=== PATIENT | female | born 1935 | race Caucasian/White ===

== ENCOUNTER 2016-08-11 11:18 | Outpatient (CLI) | payer MEDICARE, OTHER ==
[2016-08-11 12:09] LABS: ALT (SGPT) 20 U/L (0-55); AST (SGOT) 25 U/L (5-34); Albumin 4.3 g/dL (3.4-4.8); Alkaline Phosphatase 99 U/L (40-150); Anion Gap 15 mmol/L (10-20); BUN (Urea Nitrogen) 9 mg/dL (9.8-20.1); Bilirubin, Total 0.4 mg/dL (0.2-1.2); Calc. Creatinine Clearance 0 mL/min (70-130); Calcium 9.9 mg/dL (7.8-10.44); Carbon Dioxide 28 mmol/L (23-31); Chloride 100 mmol/L (98-107); Estimated GFR-MDRD 84; Globulin 1.9 g/dL (2.4-3.5); Glucose 101 mg/dL (83-110); Protein, Total 6.2 g/dL (5.8-8.1); Sodium 139 mmol/L (136-145)
[2016-08-11 12:11] LABS: #Basophils 0.1 thou/uL (0.0-0.2); #Eosinphils 0.2 thou/uL (0.0-0.7); #Lymphocytes 1.5 thou/uL (1.20-3.40); #Monocytes 0.5 thou/uL (0.11-0.59); #Neutrophils 2.9 thou/uL (1.40-6.50); %Basophils 1.3 % (0.0-1.0); %Eosinophils 4.3 % (0.0-10.0); %Lymphocytes 29.5 % (21.0-51.0); %Monocytes 10.2 % (0.0-10.0); %Neutrophils 54.7 % (42.0-75.0); Hemoglobin 13.6 g/dL (12.0-16.0); Mean Corpuscular HGB CONC 33.2 g/dL (32.0-36.0); Mean Corpuscular Hemoglobin 31.6 pg (27.0-31.0); Platelet Count 250 thou/uL (130-400); RBC Distribution Width 11.3 % (11.5-14.5); White Blood Cell (WBC) Count 5.2 thou/uL (4.8-10.8)
== END 2016-08-11 11:19 | disposition home or self-care (01) ==
LOC: MADLAB 11:18
PROVIDERS: ATTEND Internal Medicine Rheumatology
DX: M17.0 Bilateral primary osteoarthritis of knee (principal); Z79.899 Other long term (current) drug therapy
CPT/HCPCS: 36415; 80053; 85025

== ENCOUNTER 2016-11-11 07:40 | Outpatient (CLI) | payer MEDICARE, OTHER ==
[2016-11-11 08:31] LABS: Albumin 4.2 g/dL (3.4-4.8); Anion Gap 12 mmol/L (10-20); BUN (Urea Nitrogen) 11 mg/dL (9.8-20.1); BUN/Creatinine Ratio 18.97; Calc. Creatinine Clearance 0 mL/min (70-130); Calcium 8.8 mg/dL (7.8-10.44); Carbon Dioxide 28 mmol/L (23-31); Cardiac Risk 3.4 (Less than 4.5); Chloride 106 mmol/L (98-107); Cholesterol 236 mg/dL (< 200 Desired); Estimated GFR-MDRD Greater than 90; Glucose 96 mg/dL (83-110); HDL Cholesterol 70 mg/dL (>60 Neg Risk); LDL Cholesterol, Calculated 148 mg/dL; Phosphorus 3.8 mg/dL (2.3-4.7); Potassium 3.7 mmol/L (3.5-5.1); Sodium 142 mmol/L (136-145); Triglycerides 91 mg/dL (Less than 150)
== END 2016-11-11 07:41 ==
LOC: MADLABBHPM 07:40
PROVIDERS: ATTEND Family Medicine
DX: E78.5 Hyperlipidemia, unspecified (principal); Z79.899 Other long term (current) drug therapy
CPT/HCPCS: 36415; 80061; 80069

== ENCOUNTER 2017-02-10 09:06 | Outpatient (CLI) | payer MEDICARE, OTHER ==
[2017-02-10 10:03] LABS: ALT (SGPT) 18 U/L (8-55); AST (SGOT) 23 U/L (5-34); Albumin 3.9 g/dL (3.4-4.8); Alkaline Phosphatase 80 U/L (40-150); Anion Gap 11 mmol/L (10-20); BUN (Urea Nitrogen) 12 mg/dL (9.8-20.1); Bilirubin, Total 0.6 mg/dL (0.2-1.2); Calc. Creatinine Clearance 0 mL/min (70-130); Calcium 9.1 mg/dL (7.8-10.44); Carbon Dioxide 29 mmol/L (23-31); Chloride 101 mmol/L (98-107); Estimated GFR-MDRD Greater than 90; Globulin 2.3 g/dL (2.4-3.5); Glucose 94 mg/dL (83-110); Protein, Total 6.2 g/dL (6.0-8.3); Sodium 137 mmol/L (136-145)
== END 2017-02-10 09:07 | disposition home or self-care (01) ==
LOC: MADLAB 09:06
PROVIDERS: ATTEND Internal Medicine Rheumatology
DX: Z51.81 Encounter for therapeutic drug level monitoring (principal); Z79.899 Other long term (current) drug therapy
CPT/HCPCS: 36415; 80053

== ENCOUNTER 2017-03-09 11:53 | Outpatient (CLI) | payer MEDICARE, OTHER | END 2017-03-09 11:54 | disposition home or self-care (01) | LOC: MADLABBHPM 11:53 | PROVIDERS: ATTEND Family Medicine | DX: N30.01 Acute cystitis with hematuria (principal) | CPT/HCPCS: 36415; 87086 ==

== ENCOUNTER 2018-08-14 09:38 | Emergency (ER) | payer MEDICARE, OTHER ==
[2018-08-14] MEDS ORDERED: traMADol HCl 50 MG TAB ONE (10:43)
[2018-08-14] MEDS ORDERED: Ondansetron ODT 4 MG TAB ONE (10:43)
[2018-08-14] MEDS ORDERED: Acetaminophen 500 MG TAB ONE (10:43)
--- NOTE | 2018-08-14 12:23 | CT ---
LUMBAR SPINE CT SCAN WITHOUT IV CONTRAST: History: History of vertebral fracture with cough with now low back pain for five days. FINDINGS: There is diffuse bony demineralization. There is prominent approximately 0.6 cm anterolisthesis of L4 on L5 with associated severe central canal and lateral recess and foraminal stenosis. There is mild central ventricle height loss of the L1 vertebral body, evidence for an age indeterminate mild compre ssion fracture without evidence for retropulsion or posterior element involvement. There is a moderate vertical height loss of the L2 vertebral body. No posterior element fracture. IMPRESSION: Mild, less than 50% central vertical height loss of L1 and L2 vertebrals without significant retropul wilbert or posterior element involvement, evidence for age indeterminate compression injuries. Anterolis thesis of L4 on L5 with associated canal, lateral recess, and foraminal stenosis. Severe bony deminer alization. POS: ALLO
--- NOTE | 2018-08-14 12:27 | CT ---
NONCONTRAST CT PELVIS: DATE: 08/14/2018. COMPARISON: 07/14/2010. FINDINGS: There is osteopenia present. There is grade I anterolisthesis of L4 on L5 measuring approximately 8 mm. Prominent Schmorl's nodes are again seen in the superior end plate of the L5 vertebral body. No fracture or dislocation is visualized involving the pelvis. The urinary bladder is distended. There is partial visualization of the inferior pole right kidney d emonstrating mild right hydronephrosis with prominence of the limited visualized right extrarenal pel vis. However, the right ureter is normal in caliber. This could be related to the prominent distent ion of the urinary bladder. UPJ-type obstruction could not be entirely excluded. Vascular calcifications are seen in the limited visualized abdominal aorta as well as involving the i liac arteries. There is colonic diverticulosis. The colon is distended with a moderate amount of re tained fecal material. IMPRESSION: 1. Diffuse osteopenia. No obvious fracture is appreciated. 2. Grade I anterolisthesis of L4 on L5 with what appeard to be a prominent Schmorl's node in the sup erior end plate of the L5 vertebral body which has a similar appearance to the study in 2009. 3. Mild hydronephrosis involving the limited visualized inferior pole right kidney. The urinary lex dder is distended which could account for this finding, but the right ureter is normal in caliber. U reteropelvic junction-type obstruction could not be entirely excluded. 4. Distention of the colon with a moderate amount of retained fecal material in the colon. 5. Colonic diverticulosis. 6. Hysterectomy. POS: LALO
== END 2018-08-14 12:25 | disposition home or self-care (01) ==
LOC: MADERS 09:38
DX: M43.16 Spondylolisthesis, lumbar region (principal); M48.061 Spinal stenosis, lumbar region without neurogenic claudication; I10 Essential (primary) hypertension
CPT/HCPCS: 72131; 72192; Q0162